=== PATIENT | male | born 1970 | race African-American/Black ===

== ENCOUNTER 2016-11-27 05:56 | Emergency (ER) | payer OTHER ==
[~2016-11-27] VITALS: Ht 175.3 cm; Wt 70.0 kg
[2016-11-27 06:16] LABS: GLUCOSE,POINT OF CARE > 600 MG/DL (70-110)
[2016-11-27] MEDS ORDERED: LISI-661 PO (06:23)
[2016-11-27] MEDS ORDERED: METF500T4 PO (06:23)
[2016-11-27] MEDS ORDERED: ASPI81 PO (06:23)
[2016-11-27] MEDS ORDERED: SODIUM CHLORIDE 0.9% 1,000 ML IV ONE ×2 (06:45→07:45)
[2016-11-27 06:52] LABS: EOSINOPHILS % (AUTO) 1.6 % (1.0-6.0); HEMOGLOBIN 11.4 g/dL (13.5-17.5); LYMPHOCYTES # (AUTO) 1.2 K/uL (1.0-4.8); LYMPHOCYTES % (AUTO) 29.4 % (22.0-44.0); MEAN CORPUSCULAR HEMOGLOBIN 25.9 pg (26.0-34.0); MEAN CORPUSCULAR HGB CONC 32.6 G/dL (31.0-37.0); MEAN CORPUSCULAR VOLUME 79 fL (80-100); MONOCYTES # (AUTO) 0.3 K/uL (0.1-1.0); MONOCYTES % (AUTO) 6.9 % (2.0-9.0); NEUTROPHILS # (AUTO) 2.6 K/uL (1.8-7.7); NEUTROPHILS % (AUTO) 61.1 % (40.0-70.0); PLATELET COUNT (AUTO) 279 K/uL (150-450); RED BLOOD CELL COUNT(AUTO) 4.41 MIL/uL (4.50-5.90); RED CELL DISTRIBUTION WIDTH 12.5 % (11.5-14.5); WHITE BLOOD COUNT (AUTO) 4.2 K/uL (4.5-11.0)
[2016-11-27] MEDS ORDERED: INSULIN REGULAR, HUMAN 100 UNITS/ML IVP ONE ×2 (07:00→10:45)
[2016-11-27 07:25] LABS: ALBUMIN 3.3 g/dL (3.4-5.0); BILIRUBIN,TOTAL 0.6 mg/dL (0.1-1.0); CALCIUM, TOTAL 9.1 mg/dL (8.8-10.5); CREATININE 2.13 mg/dL (0.60-1.30); POTASSIUM 3.8 mmol/L (3.5-5.1); TOTAL PROTEIN, SERUM 7.2 g/dL (6.4-8.2)
[2016-11-27 07:45] LABS: GLUCOSE,POINT OF CARE 473 MG/DL (70-110)
[2016-11-27 08:02] LABS: APPEARANCE,URINE CLEAR (CLEAR); GLUCOSE, URINE (UA) >=1000 mg/dL (NEGATIVE); KETONES,URINE NEGATIVE (NEGATIVE); LEUKOCYTE ESTERASE ,URINE NEGATIVE (NEGATIVE); OCCULT BLOOD,URINE NEGATIVE (NEGATIVE); PROTEIN,URINE NEGATIVE (NEGATIVE)
[2016-11-27 08:12] LABS: RBC,URINE None Seen /HPF (0-2); SQUAMOUS EPITHELIAL CELL,UR Rare /LPF (None Seen); WBC,URINE 0-2 /HPF (0-5)
[2016-11-27 10:36] LABS: GLUCOSE,POINT OF CARE 290 MG/DL (70-110)
[2016-11-27 10:50] LABS: CALCIUM, TOTAL 8.1 mg/dL (8.8-10.5); CREATININE 1.81 mg/dL (0.60-1.30); POTASSIUM 3.2 mmol/L (3.5-5.1)
[2016-11-27] MEDS ORDERED: POTASSIUM CHLORIDE 20 MEQ ER TABLET PO ONE (11:45)
[2016-11-27 12:47] VITALS: BP 130/67
[2016-11-27 12:56] LABS: GLUCOSE,POINT OF CARE 274 MG/DL (70-110)
== END 2016-11-27 13:01 | disposition home or self-care (01) ==
LOC: EMS 05:58
DX: E11.65 Type 2 diabetes mellitus with hyperglycemia (principal); I10 Essential (primary) hypertension; Z79.82 Long term (current) use of aspirin
CPT/HCPCS: 36415; 80048; 80053; 81001; 82948; 82962; 84484; 85025; 96361; 96374; 96375; 99285; J1815; J7030; 99284

== ENCOUNTER 2021-06-09 07:07 | Emergency (ER) | payer OTHER ==
[~2021-06-09] VITALS: Ht 177.8 cm; Wt 75.0 kg
[~2021-06-09 07:07] MED LIST: ASPI-1450 PO; GABA-1181 PO; GLIP5 PO; INSLAN SQ; LISI-893 PO
[2021-06-09 09:04] LABS: APPEARANCE,URINE CLEAR (CLEAR); BILIRUBIN,URINE NEGATIVE (NEGATIVE); GLUCOSE, URINE (UA) 100 mg/dL (NEGATIVE); KETONES,URINE NEGATIVE (NEGATIVE); LEUKOCYTE ESTERASE ,URINE NEGATIVE (NEGATIVE); NITRATE,URINE NEGATIVE (NEGATIVE); OCCULT BLOOD,URINE LARGE (NEGATIVE); PROTEIN,URINE SEE CONFIRM (NEGATIVE); UROBILINOGEN,URINE 0.2 mg/dL (<=1.0)
[2021-06-09 09:12] LABS: BACTERIA,URINE None Seen /HPF (None Seen); SQUAMOUS EPITHELIAL CELL,UR Few /LPF (None Seen); SULFOSALICYLIC ACID,URINE 3+ (Negative); WBC,URINE None Seen /HPF (0-5)
[2021-06-09 09:13] LABS: RBC,URINE 26-50 /HPF (0-2)
[2021-06-09] MEDS ORDERED: PHENAZOPYRIDINE HCL 100 MG TABLET PO ONE (09:45)
[2021-06-09 10:00] VITALS: BP 149/88
== END 2021-06-09 10:10 | disposition home or self-care (01) ==
LOC: EMS 07:08
DX: R80.0 Isolated proteinuria (principal); R81 Glycosuria; R30.0 Dysuria; E11.22 Type 2 diabetes mellitus with diabetic chronic kidney disease; I12.9 Hypertensive chronic kidney disease with stage 1 through stage 4 chronic kidney disease, or unspecified chronic kidney disease; N18.9 Chronic kidney disease, unspecified
CPT/HCPCS: 81001; 81002; 82962; 87591; 99283

== ENCOUNTER 2021-10-29 23:14 | Emergency (ER) | payer OTHER ==
[~2021-10-29] VITALS: Ht 180.3 cm; Wt 75.0 kg
[2021-10-30 01:05] VITALS: BP 153/104
== END 2021-10-30 01:32 | disposition home or self-care (01) ==
LOC: EMS 23:17
DX: H61.21 Impacted cerumen, right ear (principal); I10 Essential (primary) hypertension; E11.9 Type 2 diabetes mellitus without complications; Z79.4 Long term (current) use of insulin; Z79.899 Other long term (current) drug therapy
CPT/HCPCS: 69209; 82962; 99283